=== PATIENT | female | born 1980 | race Caucasian/White ===

== ENCOUNTER 2016-03-24 05:37 | Day surgery (SDC) | payer OTHER ==
[2016-03-17 13:44] VITALS: BMI 24.0
[2016-03-24] MEDS ORDERED: LACTATED RINGERS SOLUTION 1,000 ML IV SCH (08:45)
[2016-03-24 08:46] VITALS: TEMP 98.8
[2016-03-24 09:23] VITALS: BP 122/72; PULSE 88
== END 2016-03-24 09:55 | disposition home or self-care (01) ==
LOC: FECT 05:37
PROVIDERS: ATTEND Psychiatry & Neurology Psychiatry
PROC: GZB4ZZZ Other Electroconvulsive Therapy (ICD-10-PCS; principal; 2016-03-24 07:45)
DX: F25.1 Schizoaffective disorder, depressive type (principal)
CPT/HCPCS: 84703; 90870; 94760

== ENCOUNTER 2016-03-26 05:43 | Day surgery (SDC) | payer OTHER ==
[2016-03-25 11:03] VITALS: BMI 24.0
[2016-03-26] MEDS ORDERED: ONDANSETRON 4 MG/2 ML VIAL IVPUSH PRN (08:40)
[2016-03-26 08:41] VITALS: TEMP 99.1
[2016-03-26 08:42] VITALS: BP 122/70; PULSE 88
== END 2016-03-26 08:45 | disposition home or self-care (01) ==
LOC: FECT 05:43
PROVIDERS: ATTEND Psychiatry & Neurology Psychiatry
PROC: GZB4ZZZ Other Electroconvulsive Therapy (ICD-10-PCS; principal; 2016-03-26 08:00)
DX: F25.1 Schizoaffective disorder, depressive type (principal)
CPT/HCPCS: 90870; 94760

== ENCOUNTER 2016-03-31 05:46 | Day surgery (SDC) | payer OTHER ==
[2016-03-26 15:59] VITALS: BMI 24.0
[2016-03-31 06:19] VITALS: TEMP 98.2
[2016-03-31] MEDS ORDERED: LACTATED RINGERS SOLUTION 1,000 ML IV SCH (07:30)
[2016-03-31 08:44] VITALS: BP 140/61; PULSE 66
== END 2016-03-31 08:30 | disposition home or self-care (01) ==
LOC: FECT 05:46
PROVIDERS: ATTEND Psychiatry & Neurology Psychiatry
PROC: GZB4ZZZ Other Electroconvulsive Therapy (ICD-10-PCS; principal; 2016-03-31 08:00)
DX: F25.1 Schizoaffective disorder, depressive type (principal)
CPT/HCPCS: 84703; 90870; 94760

== ENCOUNTER 2016-04-03 05:41 | Day surgery (SDC) | payer OTHER ==
[2016-04-01 12:19] VITALS: BMI 24.0
[2016-04-03 05:58] VITALS: TEMP 98.2
[2016-04-03 11:01] VITALS: BP 110/72; PULSE 82
== END 2016-04-03 08:15 | disposition home or self-care (01) ==
LOC: FECT 05:41
PROVIDERS: ATTEND Psychiatry & Neurology Psychiatry
PROC: GZB4ZZZ Other Electroconvulsive Therapy (ICD-10-PCS; principal; 2016-04-03 08:45)
DX: F25.1 Schizoaffective disorder, depressive type (principal)
CPT/HCPCS: 90870; 94760

== ENCOUNTER 2016-04-07 05:38 | Day surgery (SDC) | payer OTHER ==
[2016-04-03 15:32] VITALS: BMI 24.0
[2016-04-07 06:00] VITALS: TEMP 98.6
[2016-04-07] MEDS ORDERED: LACTATED RINGERS SOLUTION 1,000 ML IV SCH (08:15)
[2016-04-07 08:56] VITALS: BP 118/71; PULSE 88
== END 2016-04-07 08:55 | disposition home or self-care (01) ==
LOC: FECT 05:38
PROVIDERS: ATTEND Psychiatry & Neurology Psychiatry
PROC: GZB4ZZZ Other Electroconvulsive Therapy (ICD-10-PCS; principal; 2016-04-07 08:30)
DX: F25.1 Schizoaffective disorder, depressive type (principal)
CPT/HCPCS: 84703; 90870; 94760

== ENCOUNTER 2016-04-14 08:03 | Day surgery (SDC) | payer OTHER ==
[2016-04-07 11:40] VITALS: BMI 24.0
--- NOTE | 2016-04-14 07:29 | HP ---
Admitting History and Physical - Admission History of Present Illness: patient is a 35 y/o female with a past medical history of scizo-affective disorder that presents for ECT. patient's last ECT was 04/07/15. patient reports feeling well, she denies any recent medication changes or illness. However, the RN reports when patient was brought to the hospital this morning, she was informed by the patient's special education bus driver, the patient was ambulating into the bathroom and had a brief loss of consciousness. Upon questioning patient, she reports ambulating to the bathroom and is unsure if she loss any consciousness. She denies any headache, nausea, or blurred vision. History Source: Patient Limitations to Obtaining History: Poor Historian - Past Medical History ...LMP: 12/20/15 Psych: Yes: Bipolar, Other (schizoaffective disorder) - Past Surgical History Past Surgical History: Yes: None. No: AAA Repair, AICD, Amputation, Appendectomy, Arthrosocopy, AV Fistula/Graft, Bariatric Surgery, Breast Biopsy, Bypass, CABG, Carotid Endarterectomy, Cataract Removal, Cholecystectomy, Colectomy, Colonoscopy, Colostomy, Craniotomy, , Cystectomy, Hernia Repair, Hysterectomy, Ileal Conduit, Ileosotomy, Joint Replacement, Kidney Transplant, Laminectomy, Liver Transplant, Mastectomy, Nephrectomy, Oopherectomy , Orchiectomy, Permanent Pacemaker, Prostatectomy, Splenectomy, Stent, Thoracotomy, TURP, Tonsillectomy, Tubal Ligation, Upper Endoscopy, Valve Replacement, Vasectomy, Vein Stripping/Ligation - Smoking History Smoking history: Never smoked Have you smoked in the past 12 months: No - Alcohol/Substance Use Hx Alcohol Use: No History of Substance Use: reports: None - Social History Usual Living Arrangement: Yes: With Spouse ADL: Independent History of Recent Travel: No Home Medications - Allergies Allergies/Adverse Reactions: Allergies Allergy/AdvReac Type Severity Reaction Status Date / Time No Known Drug Allergies Allergy Verified 03/26/16 15:55 - Home Medications Home Medications: Ambulatory Orders Clonazepam [KlonoPIN] 0.5 mg PO BID 04/12/14 Asenapine [Saphris -] 5 mg SL HS 07/01/15 Perphenazine 8 mg PO BID 07/01/15 Norethindrone AC-Eth Estradiol [Loestrin 21 1.5-30 Tablet] 1 each PO DAILY 10/10 Benztropine Mesylate [Cogentin -] 1 mg PO BID 11/29/15 Docusate Sodium [Colace -] 100 mg PO DAILY 11/29/15 Lactobacillus Acidophilus [Acidophilus] 1 each PO DAILY 11/29/15 Multivitamin [Poly-Vitamin] 1 each PO DAILY 11/29/15 [place]-3 Fatty Acids [Fish Oil] 300 mg PO DAILY 11/29/15 Divalproex [Depakote -] 500 mg PO BID 02/07/16 Asenapine Maleate [Saphris] 10 mg SL DAILY 03/13/16 Family Disease History - Family Disease History Family History: Unremarkable Review of Systems - Review of Systems Constitutional: reports: No Symptoms Eyes: reports: No Symptoms HENT: reports: No Symptoms Neck: reports: No Symptoms Cardiovascular: reports: No Symptoms Respiratory: reports: No Symptoms Gastrointestinal: reports: No Symptoms Genitourinary: reports: No Symptoms Musculoskeletal: reports: No Symptoms Integumentary: reports: No Symptoms Neurological: reports: No Symptoms Endocrine: reports: No Symptoms Hematology/Lymphatic: reports: No Symptoms Psychiatric: reports: No Symptoms Physical Examination Constitutional: Yes: Well Nourished, No Distress, Calm Eyes: Yes: WNL, Conjunctiva Clear, EOM Intact HENT: Yes: WNL, Atraumatic, Normocephalic Neck: Yes: WNL, Supple, Trachea Midline Cardiovascular: Yes: WNL, Regular Rate and Rhythm, S1, S2 Respiratory: Yes: WNL, Regular, CTA Bilaterally Gastrointestinal: Yes: WNL, Normal Bowel Sounds, Soft ...Rectal Exam: Yes: Deferred Renal/: Yes: WNL Musculoskeletal: Yes: WNL Extremities: Yes: WNL Edema: No Peripheral Pulses WNL: Yes Peripheral Pulses: Left Radial: 4+, Right Radial: 4+, Left Doralis Pedis: 3+, Right Dorsalis Pedis: 3+, Left Femoral: 3+, Right Femoral: 3+ Integumentary: Yes: WNL Neurological: Yes: WNL, Alert, Oriented ...Motor Strength: WNL Psychiatric: Yes: WNL, Alert, Oriented Labs: reviewed 02/04 Imaging - Results EKG: Image Reviewed, Other (nsr) Assessment/Plan pt is a 35 y/o female with a past medical history of scizo-affective disorder that presents for ECT. Since, patient has a reported questionable syncopal episode this AM and does not have a history of a seizure disorder. Patient is at moderate risk for ECT.
[2016-04-14 09:16] VITALS: TEMP 97.8
[2016-04-14 09:21] VITALS: BP 114/62; PULSE 88
== END 2016-04-14 09:15 | disposition home or self-care (01) ==
LOC: FECT 08:03
PROVIDERS: ATTEND Psychiatry & Neurology Psychiatry
PROC: GZB4ZZZ Other Electroconvulsive Therapy (ICD-10-PCS; principal; 2016-04-14 07:15)
DX: F25.1 Schizoaffective disorder, depressive type (principal)
CPT/HCPCS: 84703; 90870; 94760

== ENCOUNTER 2016-04-21 05:40 | Day surgery (SDC) | payer OTHER ==
[2016-04-14 16:17] VITALS: BMI 24.0
[2016-04-21 08:47] VITALS: TEMP 98.1
[2016-04-21 08:49] VITALS: BP 120/77; PULSE 89
== END 2016-04-21 08:50 | disposition home or self-care (01) ==
LOC: FECT 05:40
PROVIDERS: ATTEND Psychiatry & Neurology Psychiatry
PROC: GZB4ZZZ Other Electroconvulsive Therapy (ICD-10-PCS; principal; 2016-04-21 07:30)
DX: F25.1 Schizoaffective disorder, depressive type (principal)
CPT/HCPCS: 84703; 90870; 94760

== ENCOUNTER 2016-04-28 05:37 | Day surgery (SDC) | payer OTHER ==
[2016-04-24 09:13] VITALS: BMI 24.0
[2016-04-28 06:51] VITALS: TEMP 98.1
[2016-04-28 08:41] VITALS: BP 111/71; PULSE 88
[2016-04-28] MEDS ORDERED: ACETAMINOPHEN 325 MG TABLET (FP) PO PRN (08:42)
[2016-04-28] MEDS ORDERED: ONDANSETRON 4 MG/2 ML VIAL IVPUSH PRN (08:42)
== END 2016-04-28 08:30 | disposition home or self-care (01) ==
LOC: FECT 05:37
PROVIDERS: ATTEND Psychiatry & Neurology Psychiatry
PROC: GZB4ZZZ Other Electroconvulsive Therapy (ICD-10-PCS; principal; 2016-04-28 07:30)
DX: F25.1 Schizoaffective disorder, depressive type (principal)
CPT/HCPCS: 84703; 90870; 94760

== ENCOUNTER 2016-05-04 05:49 | Day surgery (SDC) | payer OTHER ==
[2016-05-04 06:24] VITALS: BMI 24.0
[2016-05-04] MEDS ORDERED: ONDANSETRON 4 MG/2 ML VIAL IVPUSH PRN (06:28)
[2016-05-04 08:14] VITALS: TEMP 98.1
[2016-05-04 08:40] VITALS: BP 111/67; PULSE 69
== END 2016-05-04 09:00 | disposition home or self-care (01) ==
LOC: FECT 05:49
PROVIDERS: ATTEND Psychiatry & Neurology Psychiatry
PROC: GZB4ZZZ Other Electroconvulsive Therapy (ICD-10-PCS; principal; 2016-05-04 08:30)
DX: F25.1 Schizoaffective disorder, depressive type (principal)
CPT/HCPCS: 84703; 90870; 94760

== ENCOUNTER 2016-05-07 05:51 | Day surgery (SDC) | payer OTHER ==
[2016-05-04 16:52] VITALS: BMI 24.0
[2016-05-07 06:43] VITALS: TEMP 98.1
[2016-05-07 08:17] VITALS: BP 106/63; PULSE 81
[2016-05-07] MEDS ORDERED: ONDANSETRON 4 MG/2 ML VIAL IVPUSH PRN (08:48)
== END 2016-05-07 08:20 | disposition home or self-care (01) ==
LOC: FASU 05:51
PROVIDERS: ATTEND Psychiatry & Neurology Psychiatry
PROC: GZB4ZZZ Other Electroconvulsive Therapy (ICD-10-PCS; principal; 2016-05-07 08:15)
DX: F25.1 Schizoaffective disorder, depressive type (principal)
CPT/HCPCS: 84703; 90870; 94760

== ENCOUNTER 2016-05-12 05:42 | Day surgery (SDC) | payer OTHER ==
[2016-05-07 10:16] VITALS: BMI 24.0
[2016-05-12 06:26] VITALS: TEMP 98.2
[2016-05-12 08:52] VITALS: BP 118/66; PULSE 88
== END 2016-05-12 08:45 | disposition home or self-care (01) ==
LOC: FECT 05:42
PROVIDERS: ATTEND Psychiatry & Neurology Psychiatry
PROC: GZB4ZZZ Other Electroconvulsive Therapy (ICD-10-PCS; principal; 2016-05-12 08:15)
DX: F25.1 Schizoaffective disorder, depressive type (principal)
CPT/HCPCS: 84703; 90870; 94760

== ENCOUNTER 2016-05-19 05:43 | Day surgery (SDC) | payer OTHER ==
[2016-05-07 15:09] VITALS: BMI 24.7
--- NOTE | 2016-05-19 07:18 | HP ---
Admitting History and Physical - Admission History of Present Illness: patient is a 35 y/o female with a past medical history of schizo-affective disorder. patient presents for ECT, her last ECT was 05/12/16. patient reports a recent diagnosis of a viral URI. patient denies any chest pain or shortness of breath. she does report intermittent cough. she denies any recent medication changes and reports compliance with prescribed medications. History Source: Patient Limitations to Obtaining History: No Limitations - Past Medical History ...LMP: 12/20/15 Psych: Yes: Bipolar, Other (schizoaffective disorder) - Past Surgical History Past Surgical History: Yes: None. No: AAA Repair, AICD, Amputation, Appendectomy, Arthrosocopy, AV Fistula/Graft, Bariatric Surgery, Breast Biopsy, Bypass, CABG, Carotid Endarterectomy, Cataract Removal, Cholecystectomy, Colectomy, Colonoscopy, Colostomy, Craniotomy, , Cystectomy, Hernia Repair, Hysterectomy, Ileal Conduit, Ileosotomy, Joint Replacement, Kidney Transplant, Laminectomy, Liver Transplant, Mastectomy, Nephrectomy, Oopherectomy , Orchiectomy, Permanent Pacemaker, Prostatectomy, Splenectomy, Stent, Thoracotomy, TURP, Tonsillectomy, Tubal Ligation, Upper Endoscopy, Valve Replacement, Vasectomy, Vein Stripping/Ligation - Smoking History Smoking history: Never smoked Have you smoked in the past 12 months: No - Alcohol/Substance Use Hx Alcohol Use: No History of Substance Use: reports: None - Social History Usual Living Arrangement: Yes: With Spouse ADL: Independent History of Recent Travel: No Home Medications - Allergies Allergies/Adverse Reactions: Allergies Allergy/AdvReac Type Severity Reaction Status Date / Time No Known Drug Allergies Allergy Verified 05/07/16 15:05 - Home Medications Home Medications: Ambulatory Orders Clonazepam [KlonoPIN] 0.5 mg PO BID 04/12/14 Asenapine [Saphris -] 5 mg SL DAILY 07/01/15 Perphenazine 8 mg PO BID 07/01/15 Benztropine Mesylate [Cogentin -] 1 mg PO BID 11/29/15 Docusate Sodium [Colace -] 100 mg PO DAILY 11/29/15 Lactobacillus Acidophilus [Acidophilus] 1 each PO DAILY 11/29/15 Multivitamin [Poly-Vitamin] 1 each PO DAILY 11/29/15 [place]-3 Fatty Acids [Fish Oil] 300 mg PO DAILY 11/29/15 Divalproex [Depakote -] 500 mg PO BID 02/07/16 Asenapine Maleate [Saphris] 10 mg SL DAILY 03/13/16 Folic Acid 1 mg PO BID 04/16/16 Family Disease History - Family Disease History Family History: Unremarkable Review of Systems - Review of Systems Constitutional: reports: No Symptoms Eyes: reports: No Symptoms HENT: reports: No Symptoms Neck: reports: No Symptoms Cardiovascular: reports: No Symptoms Respiratory: reports: No Symptoms Gastrointestinal: reports: No Symptoms, Indigestion Genitourinary: reports: No Symptoms Breasts: reports: No Symptoms Reported Musculoskeletal: reports: No Symptoms Integumentary: reports: No Symptoms Neurological: reports: No Symptoms Endocrine: reports: No Symptoms Hematology/Lymphatic: reports: No Symptoms Psychiatric: reports: No Symptoms Physical Examination Vital Signs: Vital Signs Temperature 98.1 F 05/19/16 06:05 Pulse Rate 87 05/19/16 06:05 Respiratory Rate 18 05/19/16 06:05 Blood Pressure 142/83 05/19/16 06:05 O2 Sat by Pulse Oximetry (%) 100 05/19/16 06:05 Constitutional: Yes: Well Nourished, No Distress, Calm Eyes: Yes: WNL, Conjunctiva Clear, EOM Intact HENT: Yes: WNL, Atraumatic, Normocephalic Neck: Yes: WNL, Supple, Trachea Midline Cardiovascular: Yes: WNL, Regular Rate and Rhythm, S1, S2 Respiratory: Yes: WNL, Regular, CTA Bilaterally Gastrointestinal: Yes: WNL, Normal Bowel Sounds, Soft ...Rectal Exam: Yes: Deferred Renal/: Yes: WNL Breast(s): Yes: WNL Musculoskeletal: Yes: WNL Extremities: Yes: WNL Edema: No Peripheral Pulses WNL: Yes Peripheral Pulses: Left Radial: 4+, Right Radial: 4+, Left Doralis Pedis: 3+, Right Dorsalis Pedis: 3+, Left Femoral: 3+, Right Femoral: 3+ Integumentary: Yes: WNL Neurological: Yes: WNL, Alert, Oriented ...Motor Strength: WNL Psychiatric: Yes: WNL, Alert, Oriented Labs: reviewed 12/05 Imaging - Results EKG: Image Reviewed, Other (nsr no ishcemic change) Assessment/Plan patient is a 35 y/o female that presents for ECT, pt has received ect in denies any adverse reaction to anesthesia labs and ekg reviewed pt is low risk for ect informed consent, risks/benefits to be obtained by Dr Roth
[2016-05-19] MEDS ORDERED: LACTATED RINGERS SOLUTION 1,000 ML IV SCH (08:30)
[2016-05-19] MEDS ORDERED: ONDANSETRON 4 MG/2 ML VIAL IVPUSH PRN (08:43)
[2016-05-19 09:15] VITALS: TEMP 98.6
[2016-05-19 09:17] VITALS: BP 110/77; PULSE 84
== END 2016-05-19 09:00 | disposition home or self-care (01) ==
LOC: FECT 05:43
PROVIDERS: ATTEND Psychiatry & Neurology Psychiatry
PROC: GZB4ZZZ Other Electroconvulsive Therapy (ICD-10-PCS; principal; 2016-05-19 07:45)
DX: F25.1 Schizoaffective disorder, depressive type (principal)
CPT/HCPCS: 84703; 90870; 94760

== ENCOUNTER 2016-05-26 05:35 | Day surgery (SDC) | payer OTHER ==
[2016-05-19 11:03] VITALS: BMI 24.7
[2016-05-26 06:29] VITALS: TEMP 98
[2016-05-26] MEDS ORDERED: ONDANSETRON 4 MG/2 ML VIAL IVPUSH PRN (08:38)
[2016-05-26 08:41] VITALS: BP 117/66; PULSE 84
[2016-05-26] MEDS ORDERED: LACTATED RINGERS SOLUTION 1,000 ML IV SCH (08:45)
== END 2016-05-26 08:40 | disposition home or self-care (01) ==
LOC: FECT 05:35
PROVIDERS: ATTEND Psychiatry & Neurology Psychiatry
PROC: GZB4ZZZ Other Electroconvulsive Therapy (ICD-10-PCS; principal; 2016-05-26 07:15)
DX: F25.1 Schizoaffective disorder, depressive type (principal)
CPT/HCPCS: 84703; 90870; 94760

== ENCOUNTER 2016-09-07 05:53 | Day surgery (SDC) | payer OTHER ==
--- NOTE | 2016-09-07 07:01 | HP ---
Admitting History and Physical - Admission History of Present Illness: pt is a 36 y/o female with a past medical history of schizo-affective disorder that presents for ECT, her last ECT was in May 2016. Patient is a poor historian as per her sister in law, patients ECT sessions were held as per her psychiatrist in [facility] for 2 months. Patient reports feeling well, she denies any recent illnesses or hospitalizations. History Source: Patient Limitations to Obtaining History: No Limitations - Past Medical History ...LMP: 12/20/15 Psych: Yes: Bipolar, Other (schizoaffective disorder) - Past Surgical History Past Surgical History: Yes: None. No: AAA Repair, AICD, Amputation, Appendectomy, Arthrosocopy, AV Fistula/Graft, Bariatric Surgery, Breast Biopsy, Bypass, CABG, Carotid Endarterectomy, Cataract Removal, Cholecystectomy, Colectomy, Colonoscopy, Colostomy, Craniotomy, , Cystectomy, Hernia Repair, Hysterectomy, Ileal Conduit, Ileosotomy, Joint Replacement, Kidney Transplant, Laminectomy, Liver Transplant, Mastectomy, Nephrectomy, Oopherectomy , Orchiectomy, Permanent Pacemaker, Prostatectomy, Splenectomy, Stent, Thoracotomy, TURP, Tonsillectomy, Tubal Ligation, Upper Endoscopy, Valve Replacement, Vasectomy, Vein Stripping/Ligation - Smoking History Smoking history: Never smoked Have you smoked in the past 12 months: No - Alcohol/Substance Use Hx Alcohol Use: No History of Substance Use: reports: None - Social History ADL: Independent History of Recent Travel: No Home Medications - Allergies Allergies/Adverse Reactions: Allergies Allergy/AdvReac Type Severity Reaction Status Date / Time No Known Drug Allergies Allergy Verified 05/07/16 15:05 - Home Medications Home Medications: Ambulatory Orders Docusate Sodium [Colace -] 100 mg PO DAILY 11/29/15 Lactobacillus Acidophilus [Acidophilus] 1 each PO DAILY 11/29/15 Multivitamin [Poly-Vitamin] 1 each PO DAILY 11/29/15 [place]-3 Fatty Acids [Fish Oil] 300 mg PO DAILY 11/29/15 Divalproex [Depakote -] 500 mg PO BID 02/07/16 Folic Acid 1 mg PO BID 04/16/16 Lorazepam [Ativan] 1 mg PO TID 09/04/16 Quetiapine Fumarate [Seroquel -] 400 mg PO BID 09/04/16 Family Disease History - Family Disease History Family History: Unremarkable Review of Systems - Review of Systems Constitutional: reports: No Symptoms Eyes: reports: No Symptoms HENT: reports: No Symptoms Neck: reports: No Symptoms Cardiovascular: reports: No Symptoms Respiratory: reports: No Symptoms Gastrointestinal: reports: No Symptoms Genitourinary: reports: No Symptoms Musculoskeletal: reports: No Symptoms Integumentary: reports: No Symptoms Neurological: reports: No Symptoms Endocrine: reports: No Symptoms Hematology/Lymphatic: reports: No Symptoms Psychiatric: reports: No Symptoms Physical Examination Constitutional: Yes: Well Nourished, No Distress, Calm Eyes: Yes: WNL, Conjunctiva Clear, EOM Intact HENT: Yes: WNL, Atraumatic, Normocephalic Neck: Yes: WNL, Supple, Trachea Midline, Other Cardiovascular: Yes: WNL, Regular Rate and Rhythm, S1, S2 Respiratory: Yes: WNL, Regular, CTA Bilaterally Gastrointestinal: Yes: WNL, Normal Bowel Sounds, Soft ...Rectal Exam: Yes: Deferred Renal/: Yes: WNL Breast(s): Yes: WNL Musculoskeletal: Yes: WNL Extremities: Yes: WNL Edema: No Peripheral Pulses WNL: Yes Integumentary: Yes: WNL Neurological: Yes: WNL, Alert, Oriented ...Motor Strength: WNL Psychiatric: Yes: WNL, Alert, Oriented, Other (flat affect) Labs: CBC WBC 5.5 K/mm3 (4.0-10.0) D 09/07/16 06:50 RBC 4.48 M/mm3 (3.60-5.2) 09/07/16 06:50 Hgb 13.6 GM/dL (10.7-15.3) D 09/07/16 06:50 Hct 40.1 % (32.4-45.2) 09/07/16 06:50 MCV 89.5 fl (80-96) 09/07/16 06:50 MCHC 34.0 g/dl (32.0-36.0) 09/07/16 06:50 RDW 13.3 % (11.6-15.6) 09/07/16 06:50 Plt Count 169 K/MM3 (134-434) D 09/07/16 06:50 MPV 8.2 fl (7.5-11.1) 09/07/16 06:50 Neutrophils % 41.0 % (42.8-82.8) L 09/07/16 06:50 Lymphocytes % 47.7 % (8-40) H 09/07/16 06:50 Monocytes % 10.0 % (3.8-10.2) 09/07/16 06:50 Eosinophils % 1.0 % (0-4.5) 09/07/16 06:50 Basophils % 0.3 % (0-2.0) 09/07/16 06:50 CMP Sodium 138 mmol/L (136-145) 09/07/16 06:50 Potassium 3.7 mmol/L (3.5-5.1) 09/07/16 06:50 Chloride 104 mmol/L (98-107) 09/07/16 06:50 Carbon Dioxide 27 mmol/L (22-28) 09/07/16 06:50 Anion Gap 7 (8-16) L 09/07/16 06:50 BUN 17 mg/dl (7-18) D 09/07/16 06:50 Creatinine 0.7 mg/dl (0.6-1.3) 09/07/16 06:50 Creat Clearance w eGFR > 60 (>60) 09/07/16 06:50 Random Glucose 90 mg/dl (74-106) D 09/07/16 06:50 Calcium 8.9 mg/dl (8.4-10.2) 09/07/16 06:50 Total Bilirubin 0.6 mg/dl (0.2-1.0) D 09/07/16 06:50 AST 15 U/L (10-42) D 09/07/16 06:50 ALT 12 U/L (10-40) 09/07/16 06:50 Alkaline Phosphatase 39 U/L (32-92) D 09/07/16 06:50 Total Protein 6.0 g/dl (6.4-8.3) L 09/07/16 06:50 Albumin 3.7 g/dl (3.5-5.0) 09/07/16 06:50 Imaging - Results EKG: Image Reviewed, Other (nsr no ischemic changes) Assessment/Plan patient is a 36 y/o female with a past medical history of schizo-affective disorder that presents for ect. pt has received ect in the past and denies any adverse reaction to anesthesia. labs and ekg reviewed pt is low risk for procedure informed consent, risk/benefits to be obtained by Dr Roth
[2016-09-07 07:35] LABS: ALBUMIN 3.7 g/dl (3.5-5.0); ALK PHOS 39 U/L (32-92); ANION GAP 7 (8-16); BILIRUBIN,TOTAL 0.6 mg/dl (0.2-1.0); CALCIUM 8.9 mg/dl (8.4-10.2); CO2 27 mmol/L (22-28); CREATININE 0.7 mg/dl (0.6-1.3); GLUCOSE,RANDOM 90 mg/dl (74-106); SGOT/AST 15 U/L (10-42); SGPT/ALT 12 U/L (10-40)
[2016-09-07 07:44] VITALS: TEMP 98.2; BMI 23.8
[2016-09-07] MEDS ORDERED: LACTATED RINGERS SOLUTION 1,000 ML IV SCH (08:15)
[2016-09-07 08:30] LABS: BASOPHIL 0.3 % (0-2.0)
[2016-09-07 08:32] LABS: MCH 30.4 pg (25.7-33.7); MEAN CELL VOLUME 89.5 fl (80-96); MEAN PLT VOLUME 8.2 fl (7.5-11.1); PLATELET COUNT 169 K/MM3 (134-434); RDW 13.3 % (11.6-15.6); WHITE BLOOD COUNT 5.5 K/mm3 (4.0-10.0)
[2016-09-07] MEDS ORDERED: ACETAMINOPHEN 325 MG TABLET (FP) PO PRN (09:53)
[2016-09-07] MEDS ORDERED: ONDANSETRON 4 MG/2 ML VIAL IVPUSH PRN (09:53)
[2016-09-07 09:58] VITALS: BP 122/76; PULSE 84
--- NOTE | 2016-09-07 11:26 | EKG ---
Test Reason : Blood Pressure : / mmHG Vent. Rate : 092 BPM Atrial Rate : 092 BPM P-R Int : 130 ms QRS Dur : 090 ms QT Int : 360 ms P-R-T Axes : 087 090 081 degrees QTc Int : 445 ms NORMAL SINUS RHYTHM NO PREVIOUS ECGS AVAILABLE Confirmed by TAI LEGGETT MD ([id number]) on 09/07/2016 11:26:04 AM Referred By: Joseph Roth Confirmed By:TAI LEGGETT MD
== END 2016-09-07 10:02 | disposition home or self-care (01) ==
LOC: FECT 05:53
PROVIDERS: ATTEND Psychiatry & Neurology Psychiatry
PROC: GZB4ZZZ Other Electroconvulsive Therapy (ICD-10-PCS; principal; 2016-09-07 07:00)
DX: F25.1 Schizoaffective disorder, depressive type (principal)
CPT/HCPCS: 36415; 80053; 84703; 85025; 90870; 93005; 94760

== ENCOUNTER 2017-02-25 05:46 | Day surgery (SDC) | payer OTHER ==
--- NOTE | 2017-02-25 07:13 | HP ---
Admitting History and Physical - Admission History of Present Illness: patient is a 36 y/o female with a past medical history of scizo-affective disorder that presents for ect. Her last ect was 08/28/16. Patient is a poor historian. Her mother is at the bedside and reports patient was hosptialized in September 2016 at [place] for worsening hallucinations. Mother reports patient was well at home, however, within the past month she has been experiencing worsening of hallcuinations. Patient does report auditory hallucination but denies any visual hallucinations. Patient denies any suicidal or homicidal ideation. History Source: Patient - Past Medical History ...LMP: 12/20/15 Psych: Yes: Bipolar, Other (schizoaffective disorder) - Past Surgical History Past Surgical History: Yes: None. No: AAA Repair, AICD, Amputation, Appendectomy, Arthrosocopy, AV Fistula/Graft, Bariatric Surgery, Breast Biopsy, Bypass, CABG, Carotid Endarterectomy, Cataract Removal, Cholecystectomy, Colectomy, Colonoscopy, Colostomy, Craniotomy, , Cystectomy, Hernia Repair, Hysterectomy, Ileal Conduit, Ileosotomy, Joint Replacement, Kidney Transplant, Laminectomy, Liver Transplant, Mastectomy, Nephrectomy, Oopherectomy , Orchiectomy, Permanent Pacemaker, Prostatectomy, Splenectomy, Stent, Thoracotomy, TURP, Tonsillectomy, Tubal Ligation, Upper Endoscopy, Valve Replacement, Vasectomy, Vein Stripping/Ligation - Smoking History Smoking history: Never smoked Have you smoked in the past 12 months: No - Alcohol/Substance Use Hx Alcohol Use: No History of Substance Use: reports: None - Social History Usual Living Arrangement: Yes: With Parent ADL: Independent History of Recent Travel: No Home Medications - Allergies Allergies/Adverse Reactions: Allergies Allergy/AdvReac Type Severity Reaction Status Date / Time No Known Drug Allergies Allergy Verified 05/07/16 15:05 - Home Medications Home Medications: Ambulatory Orders Multivitamin [Poly-Vitamin] 1 each PO DAILY 11/29/15 Aripiprazole 10 mg PO HS 02/25/17 Cariprazine HCl [Vraylar] 6 mg PO DAILY 02/25/17 Diazepam [Valium] 5 mg PO BID 02/25/17 Divalproex [Depakote -] 250 mg PO DAILY 02/25/17 Divalproex [Depakote -] 750 mg PO HS 02/25/17 Levomefolate/Algal Oil [[place]-Algal Oil 15 mg Capsule] 1 each PO DAILY Olanzapine 5 mg PO DAILY 02/25/17 Family Disease History - Family Disease History Family Disease History: Other: Father (deceaseed "long illnesses") Review of Systems - Review of Systems Constitutional: reports: No Symptoms Eyes: reports: No Symptoms HENT: reports: No Symptoms Neck: reports: No Symptoms Cardiovascular: reports: No Symptoms Respiratory: reports: No Symptoms Gastrointestinal: reports: No Symptoms Genitourinary: reports: No Symptoms Musculoskeletal: reports: No Symptoms Integumentary: reports: No Symptoms Neurological: reports: No Symptoms Endocrine: reports: No Symptoms Hematology/Lymphatic: reports: No Symptoms Psychiatric: reports: Hallucinations Physical Examination Vital Signs: Vital Signs Temperature 98.1 F 02/25/17 06:06 Pulse Rate 66 02/25/17 06:06 Respiratory Rate 18 02/25/17 06:06 Blood Pressure 112/72 02/25/17 06:06 O2 Sat by Pulse Oximetry (%) 100 02/25/17 06:06 Constitutional: Yes: Well Nourished, No Distress, Calm Eyes: Yes: WNL, Conjunctiva Clear, EOM Intact HENT: Yes: WNL, Atraumatic, Normocephalic Neck: Yes: WNL, Supple, Trachea Midline Cardiovascular: Yes: WNL, Regular Rate and Rhythm, S1, S2 Respiratory: Yes: WNL, Regular, CTA Bilaterally Gastrointestinal: Yes: WNL, Normal Bowel Sounds, Soft ...Rectal Exam: Yes: Deferred Renal/: Yes: WNL Breast(s): Yes: WNL Musculoskeletal: Yes: WNL Extremities: Yes: WNL Edema: No Peripheral Pulses WNL: No Peripheral Pulses: Left Radial: 4+, Right Radial: 4+, Left Doralis Pedis: 3+, Right Dorsalis Pedis: 3+, Left Femoral: 3+, Right Femoral: 3+ Integumentary: Yes: WNL Neurological: Yes: WNL, Alert, Oriented ...Motor Strength: WNL Psychiatric: Yes: WNL, Alert, Oriented Labs: CBC WBC 7.4 K/mm3 (4.0-10.8) 02/25/17 06:25 RBC 4.37 M/mm3 (3.60-5.2) 02/25/17 06:25 Hgb 13.3 GM/dl (10.7-15.3) 02/25/17 06:25 Hct 38.5 % (32.4-45.2) 02/25/17 06:25 MCV 88.3 fl (80-96) 02/25/17 06:25 MCH 30.5 pg (25.7-33.7) 02/25/17 06:25 MCHC 34.6 g/dl (32.0-36.0) 02/25/17 06:25 RDW 12.5 % (11.6-15.6) 02/25/17 06:25 Plt Count 258 K/MM3 (134-434) 02/25/17 06:25 MPV 8.6 fl (7.5-11.1) 02/25/17 06:25 Neutrophils % 57.4 % (42.8-82.8) 02/25/17 06:25 Lymphocytes % 35.9 % (8-40) 02/25/17 06:25 Monocytes % 5.2 % (3.8-10.2) 02/25/17 06:25 Eosinophils % 1.3 % (0-4.5) D 02/25/17 06:25 Basophils % 0.2 % (0-2.0) 02/25/17 06:25 CMP Sodium 140 mmol/L (136-145) 02/25/17 06:25 Potassium 4.4 mmol/L (3.5-5.1) 02/25/17 06:25 Chloride 106 mmol/L (98-107) 02/25/17 06:25 Carbon Dioxide 28 mmol/L (22-28) 02/25/17 06:25 Anion Gap 6 (8-16) L 02/25/17 06:25 BUN 22 mg/dl (7-18) H D 02/25/17 06:25 Creatinine 0.7 mg/dl (0.6-1.3) 02/25/17 06:25 Creat Clearance w eGFR > 60 (>60) 02/25/17 06:25 Random Glucose 76 mg/dl (74-106) 02/25/17 06:25 Calcium 9.1 mg/dl (8.4-10.2) 02/25/17 06:25 Total Bilirubin 0.6 mg/dl (0.2-1.0) 02/25/17 06:25 AST 18 U/L (10-42) 02/25/17 06:25 ALT 13 U/L (10-40) 02/25/17 06:25 Alkaline Phosphatase 44 U/L (32-92) 02/25/17 06:25 Total Protein 6.2 g/dl (6.4-8.3) L 02/25/17 06:25 Albumin 3.8 g/dl (3.5-5.0) 02/25/17 06:25 Assessment/Plan patient is a 36 y/o female that presents for ect, labs and ekg reviewed patient is medically optimized for procedure informed consent, risks/benefits to be obtained by Dr Roth.
[2017-02-25 07:46] VITALS: BMI 24.6
[2017-02-25 07:54] LABS: ALBUMIN 3.8 g/dl (3.5-5.0); ALK PHOS 44 U/L (32-92); ANION GAP 6 (8-16); BASOPHIL 0.2 % (0-2.0); BILIRUBIN,TOTAL 0.6 mg/dl (0.2-1.0); CALCIUM 9.1 mg/dl (8.4-10.2); CO2 28 mmol/L (22-28); CREATININE 0.7 mg/dl (0.6-1.3); EOSINOPHIL 1.3 % (0-4.5); GLUCOSE,RANDOM 76 mg/dl (74-106); MCH 30.5 pg (25.7-33.7); MCHC 34.6 g/dl (32.0-36.0); MEAN CELL VOLUME 88.3 fl (80-96); MEAN PLT VOLUME 8.6 fl (7.5-11.1); NEUTROPHILS 57.4 % (42.8-82.8); PLATELET COUNT 258 K/MM3 (134-434); RDW 12.5 % (11.6-15.6); SGOT/AST 18 U/L (10-42); SGPT/ALT 13 U/L (10-40); TOT PROT 6.2 g/dl (6.4-8.3); WHITE BLOOD COUNT 7.4 K/mm3 (4.0-10.8)
[2017-02-25] MEDS ORDERED: KETAMINE HCL 500 MG/10 ML VIAL ONE (09:19)
[2017-02-25] MEDS ORDERED: ONDANSETRON 4 MG/2 ML VIAL IVPUSH PRN (09:40)
[2017-02-25] MEDS ORDERED: LACTATED RINGERS SOLUTION 1,000 ML IV SCH (09:45)
[2017-02-25 10:56] VITALS: TEMP 98
[2017-02-25 10:58] VITALS: BP 101/60; PULSE 84
--- NOTE | 2017-03-01 17:13 | EKG ---
Test Reason : Blood Pressure : / mmHG Vent. Rate : 064 BPM Atrial Rate : 064 BPM P-R Int : 140 ms QRS Dur : 084 ms QT Int : 410 ms P-R-T Axes : 067 074 050 degrees QTc Int : 422 ms NORMAL SINUS RHYTHM WHEN COMPARED WITH ECG OF 07-SEP-2016 07:18, T WAVE AMPLITUDE HAS INCREASED IN LATERAL LEADS Confirmed by MD BALDWIN MARJORY ([id number] on 03/01/2017 5:13:03 PM Referred By: Joseph Roth Confirmed By:SKINNY BALDWIN MD
== END 2017-02-25 10:50 | disposition home or self-care (01) ==
LOC: FECT 05:46
PROVIDERS: ATTEND Psychiatry & Neurology Psychiatry
PROC: GZB4ZZZ Other Electroconvulsive Therapy (ICD-10-PCS; principal; 2017-02-25 07:15)
DX: F25.1 Schizoaffective disorder, depressive type (principal)
CPT/HCPCS: 36415; 80053; 84703; 85025; 90870; 93005; 93010; 94760

== ENCOUNTER 2017-03-01 05:46 | Day surgery (SDC) | payer OTHER ==
[2017-02-26 10:56] VITALS: BMI 24.6
[2017-03-01 07:45] VITALS: TEMP 98
[2017-03-01] MEDS ORDERED: KETAMINE HCL 500 MG/10 ML VIAL ONE (08:39)
[2017-03-01] MEDS ORDERED: ONDANSETRON 4 MG/2 ML VIAL IVPUSH PRN (09:49)
[2017-03-01 10:56] VITALS: BP 100/62; PULSE 63
== END 2017-03-01 10:30 | disposition home or self-care (01) ==
LOC: FECT 05:46
PROVIDERS: ATTEND Psychiatry & Neurology Psychiatry
PROC: GZB4ZZZ Other Electroconvulsive Therapy (ICD-10-PCS; principal; 2017-03-01 08:00)
DX: F25.1 Schizoaffective disorder, depressive type (principal)
CPT/HCPCS: 36415; 84703; 90870; 94760

== ENCOUNTER 2017-03-03 05:48 | Day surgery (SDC) | payer OTHER ==
[2017-02-26 12:16] VITALS: BMI 24.6
[2017-03-03 07:23] VITALS: TEMP 98
[2017-03-03] MEDS ORDERED: KETAMINE HCL 500 MG/10 ML VIAL ONE (08:49)
[2017-03-03 10:34] VITALS: BP 118/66; PULSE 64
== END 2017-03-03 10:30 | disposition home or self-care (01) ==
LOC: FECT 05:48
PROVIDERS: ATTEND Psychiatry & Neurology Psychiatry
PROC: GZB4ZZZ Other Electroconvulsive Therapy (ICD-10-PCS; principal; 2017-03-03 08:00)
DX: F25.1 Schizoaffective disorder, depressive type (principal)
CPT/HCPCS: 36415; 84703; 90870; 94760

== ENCOUNTER → 2017-03-05 | Day surgery (SDC) | payer OTHER ==
[2017-03-03 07:48] VITALS: BMI 24.6
[~2017-03-05] MED LIST: KETAMINE HCL 500 MG/10 ML VIAL ONE
[2017-03-05 06:43] VITALS: BP 82/60; PULSE 61; TEMP 98
== END | disposition home or self-care (01) ==
LOC: FECT 05:42
PROVIDERS: ATTEND Psychiatry & Neurology Psychiatry
PROC: GZB4ZZZ Other Electroconvulsive Therapy (ICD-10-PCS; principal; 2017-03-05)
DX: F25.1 Schizoaffective disorder, depressive type (principal); Z53.8 Procedure and treatment not carried out for other reasons
CPT/HCPCS: 36415; 84703

== ENCOUNTER 2017-03-08 05:29 | Day surgery (SDC) | payer OTHER ==
[2017-03-03 12:59] VITALS: BMI 24.6
[2017-03-08] MEDS ORDERED: ONDANSETRON 4 MG/2 ML VIAL IVPUSH PRN (07:20)
[2017-03-08] MEDS ORDERED: PROMETHAZINE HCL 25 MG/1 ML VIAL IVPUSH PRN (07:20)
[2017-03-08] MEDS ORDERED: LACTATED RINGERS SOLUTION 1,000 ML IV SCH (07:30)
[2017-03-08 08:17] VITALS: TEMP 98.6
[2017-03-08 09:12] VITALS: BP 103/63; PULSE 61
== END 2017-03-08 09:14 | disposition home or self-care (01) ==
LOC: FECT 05:29
PROVIDERS: ATTEND Psychiatry & Neurology Psychiatry
PROC: GZB4ZZZ Other Electroconvulsive Therapy (ICD-10-PCS; principal; 2017-03-08 07:15)
DX: F25.1 Schizoaffective disorder, depressive type (principal)
CPT/HCPCS: 36415; 84703; 90870; 94760

== ENCOUNTER 2017-03-10 05:38 | Day surgery (SDC) | payer OTHER ==
[2017-03-04 08:44] VITALS: BMI 24.6
[2017-03-10 08:54] VITALS: TEMP 98.1
[2017-03-10 09:46] VITALS: BP 103/62; PULSE 66
== END 2017-03-10 09:47 | disposition home or self-care (01) ==
LOC: FECT 05:38
PROVIDERS: ATTEND Psychiatry & Neurology Psychiatry
PROC: GZB4ZZZ Other Electroconvulsive Therapy (ICD-10-PCS; principal; 2017-03-10 07:30)
DX: F25.1 Schizoaffective disorder, depressive type (principal)
CPT/HCPCS: 84703; 90870; 94760

== ENCOUNTER 2017-03-12 06:11 | Day surgery (SDC) | payer OTHER ==
[2017-03-04 09:07] VITALS: BMI 24.6
[2017-03-12] MEDS ORDERED: LACTATED RINGERS SOLUTION 1,000 ML IV SCH (08:15)
[2017-03-12] MEDS ORDERED: KETAMINE HCL 500 MG/10 ML VIAL ONE (08:29)
[2017-03-12 09:55] VITALS: TEMP 98
[2017-03-12 09:58] VITALS: BP 106/62; PULSE 72
== END 2017-03-12 09:50 | disposition home or self-care (01) ==
LOC: FECT 06:11
PROVIDERS: ATTEND Psychiatry & Neurology Psychiatry
PROC: GZB4ZZZ Other Electroconvulsive Therapy (ICD-10-PCS; principal; 2017-03-12 07:15)
DX: F25.1 Schizoaffective disorder, depressive type (principal)
CPT/HCPCS: 90870; 94760

== ENCOUNTER 2017-03-17 05:40 | Day surgery (SDC) | payer OTHER ==
[2017-03-17 06:15] VITALS: TEMP 98; BMI 24.6
[2017-03-17] MEDS ORDERED: KETAMINE HCL 500 MG/10 ML VIAL ONE (06:56)
[2017-03-17 08:48] VITALS: BP 115/68; PULSE 78
== END 2017-03-17 08:40 | disposition home or self-care (01) ==
LOC: FECT 05:40
PROVIDERS: ATTEND Psychiatry & Neurology Psychiatry
PROC: GZB4ZZZ Other Electroconvulsive Therapy (ICD-10-PCS; principal; 2017-03-17 07:00)
DX: F25.1 Schizoaffective disorder, depressive type (principal)
CPT/HCPCS: 84703; 90870; 94760

== ENCOUNTER 2017-03-19 05:39 | Day surgery (SDC) | payer OTHER ==
[2017-03-19 07:04] VITALS: TEMP 98.8; BMI 24.6
[2017-03-19] MEDS ORDERED: KETAMINE HCL 500 MG/10 ML VIAL ONE (08:02)
[2017-03-19 09:24] VITALS: BP 102/63; PULSE 64
== END 2017-03-19 09:25 | disposition home or self-care (01) ==
LOC: FECT 05:39
PROVIDERS: ATTEND Psychiatry & Neurology Psychiatry
PROC: GZB4ZZZ Other Electroconvulsive Therapy (ICD-10-PCS; principal; 2017-03-19 07:00)
DX: F25.1 Schizoaffective disorder, depressive type (principal)
CPT/HCPCS: 90870; 94760

== ENCOUNTER 2017-03-24 05:40 | Day surgery (SDC) | payer OTHER ==
[2017-03-17 11:32] VITALS: BMI 24.6
[2017-03-24] MEDS ORDERED: LACTATED RINGERS SOLUTION 1,000 ML IV SCH (07:45)
[2017-03-24 08:30] VITALS: TEMP 98.8
[2017-03-24 09:12] VITALS: BP 110/62; PULSE 74
== END 2017-03-24 09:00 | disposition home or self-care (01) ==
LOC: FECT 05:40
PROVIDERS: ATTEND Psychiatry & Neurology Psychiatry
PROC: GZB4ZZZ Other Electroconvulsive Therapy (ICD-10-PCS; principal; 2017-03-24 07:00)
DX: F25.1 Schizoaffective disorder, depressive type (principal)
CPT/HCPCS: 36415; 84703; 90870; 94760

== ENCOUNTER 2017-03-26 05:41 | Day surgery (SDC) | payer OTHER ==
[2017-03-17 12:38] VITALS: BMI 24.6
[2017-03-26] MEDS ORDERED: KETAMINE HCL 500 MG/10 ML VIAL ONE (07:00)
[2017-03-26 07:57] VITALS: TEMP 98.3
[2017-03-26] MEDS ORDERED: ONDANSETRON 4 MG/2 ML VIAL IVPUSH PRN (08:23)
[2017-03-26] MEDS ORDERED: oxyCODONE HCL 5 MG TABLET PO PRN (08:23)
[2017-03-26] MEDS ORDERED: LACTATED RINGERS SOLUTION 1,000 ML IV SCH (08:30)
[2017-03-26 08:54] VITALS: BP 106/58; PULSE 76
== END 2017-03-26 08:40 | disposition home or self-care (01) ==
LOC: FECT 05:41
PROVIDERS: ATTEND Psychiatry & Neurology Psychiatry
PROC: GZB4ZZZ Other Electroconvulsive Therapy (ICD-10-PCS; principal; 2017-03-26 07:00)
DX: F25.1 Schizoaffective disorder, depressive type (principal)
CPT/HCPCS: 90870; 94760

== ENCOUNTER 2017-03-30 05:49 | Day surgery (SDC) | payer OTHER ==
[2017-03-17 12:43] VITALS: BMI 24.6
--- NOTE | 2017-03-30 08:10 | HP ---
Admitting History and Physical - Admission History of Present Illness: Patient is a 36 y/o female with a past medical history of of scizo-affective disorder that presents for ect. patient's last ect was 03/26/17. Patient voices no complaints. She denies any recent illnesses or hospitalizations. Patient denies any recent medication changes. History Source: Patient Limitations to Obtaining History: No Limitations - Past Medical History ...LMP: 03/22/17 Psych: Yes: Bipolar, Other (schizoaffective disorder) - Past Surgical History Past Surgical History: Yes: None. No: AAA Repair, AICD, Amputation, Appendectomy, Arthrosocopy, AV Fistula/Graft, Bariatric Surgery, Breast Biopsy, Bypass, CABG, Carotid Endarterectomy, Cataract Removal, Cholecystectomy, Colectomy, Colonoscopy, Colostomy, Craniotomy, , Cystectomy, Hernia Repair, Hysterectomy, Ileal Conduit, Ileosotomy, Joint Replacement, Kidney Transplant, Laminectomy, Liver Transplant, Mastectomy, Nephrectomy, Oopherectomy , Orchiectomy, Permanent Pacemaker, Prostatectomy, Splenectomy, Stent, Thoracotomy, TURP, Tonsillectomy, Tubal Ligation, Upper Endoscopy, Valve Replacement, Vasectomy, Vein Stripping/Ligation - Smoking History Smoking history: Never smoked Have you smoked in the past 12 months: No - Alcohol/Substance Use Hx Alcohol Use: No History of Substance Use: reports: None - Social History Usual Living Arrangement: Yes: With Parent ADL: Independent History of Recent Travel: No Home Medications - Allergies Allergies/Adverse Reactions: Allergies Allergy/AdvReac Type Severity Reaction Status Date / Time No Known Drug Allergies Allergy Verified 03/19/17 07:08 - Home Medications Home Medications: Ambulatory Orders Aripiprazole 5 mg PO DAILY 02/25/17 Cariprazine HCl [Vraylar] 3 mg PO DAILY 02/25/17 Diazepam [Valium] 5 mg PO BID 02/25/17 Divalproex [Depakote -] 250 mg PO DAILY 02/25/17 Divalproex [Depakote -] 250 mg PO HS 02/25/17 Levomefolate/Algal Oil [Deplin-Algal Oil 15 mg Capsule] 1 each PO DAILY Clonazepam 2 mg PO DAILY PRN 03/08/17 Family Disease History - Family Disease History Family Disease History: Other: Father (deceaseed "long illnesses") Review of Systems - Review of Systems Constitutional: reports: No Symptoms Eyes: reports: No Symptoms HENT: reports: No Symptoms Neck: reports: No Symptoms Cardiovascular: reports: No Symptoms Respiratory: reports: No Symptoms Gastrointestinal: reports: No Symptoms Genitourinary: reports: No Symptoms Musculoskeletal: reports: No Symptoms Integumentary: reports: No Symptoms Neurological: reports: No Symptoms Endocrine: reports: No Symptoms Hematology/Lymphatic: reports: No Symptoms Psychiatric: reports: No Symptoms Physical Examination Vital Signs: Vital Signs Temperature 98.3 F 03/30/17 07:49 Pulse Rate 92 H 03/30/17 07:49 Respiratory Rate 18 03/30/17 07:49 Blood Pressure 113/72 03/30/17 07:49 O2 Sat by Pulse Oximetry (%) 98 03/30/17 07:49 Constitutional: Yes: Well Nourished, No Distress, Calm Eyes: Yes: WNL, Conjunctiva Clear, EOM Intact HENT: Yes: WNL, Atraumatic, Normocephalic Neck: Yes: WNL, Supple, Trachea Midline Cardiovascular: Yes: WNL, Regular Rate and Rhythm, S1, S2 Respiratory: Yes: WNL, Regular, CTA Bilaterally Gastrointestinal: Yes: WNL, Normal Bowel Sounds, Soft ...Rectal Exam: Yes: Deferred Renal/: Yes: WNL Breast(s): Yes: WNL Musculoskeletal: Yes: WNL Extremities: Yes: WNL Edema: No Peripheral Pulses WNL: Yes Peripheral Pulses: Left Radial: 4+, Right Radial: 4+, Left Doralis Pedis: 3+, Right Dorsalis Pedis: 3+, Left Femoral: 3+, Right Femoral: 3+ Integumentary: Yes: WNL Neurological: Yes: WNL, Alert, Oriented ...Motor Strength: WNL Psychiatric: Yes: WNL, Alert, Other (flat affect) Labs: reviewed 03/07 Imaging - Results EKG: Other (nsr) Assessment/Plan patient is a 36 y/o female that presents for ect, labs and ekg reviewed patient is medically optimized for procedure
[2017-03-30 09:39] VITALS: TEMP 98.2
[2017-03-30 10:25] VITALS: BP 118/80; PULSE 88
== END 2017-03-30 10:15 | disposition home or self-care (01) ==
LOC: FECT 05:49
PROVIDERS: ATTEND Psychiatry & Neurology Psychiatry
PROC: GZB4ZZZ Other Electroconvulsive Therapy (ICD-10-PCS; principal; 2017-03-30 08:45)
DX: F25.1 Schizoaffective disorder, depressive type (principal)
CPT/HCPCS: 84703; 90870; 94760

== ENCOUNTER 2017-04-02 05:40 | Day surgery (SDC) | payer OTHER ==
[2017-04-02 06:36] VITALS: BMI 24.6
[2017-04-02 08:56] VITALS: TEMP 98.4
[2017-04-02 09:34] VITALS: BP 98/68; PULSE 64
== END 2017-04-02 09:42 | disposition home or self-care (01) ==
LOC: FECT 05:40
PROVIDERS: ATTEND Psychiatry & Neurology Psychiatry
PROC: GZB4ZZZ Other Electroconvulsive Therapy (ICD-10-PCS; principal; 2017-04-02 08:00)
DX: F25.1 Schizoaffective disorder, depressive type (principal)
CPT/HCPCS: 84703; 90870; 94760

== ENCOUNTER 2017-04-06 05:44 | Day surgery (SDC) | payer OTHER ==
[2017-04-05 12:30] VITALS: BMI 24.6
[2017-04-06 08:37] VITALS: TEMP 98.1
[2017-04-06 09:26] VITALS: BP 110/54; PULSE 66
== END 2017-04-06 09:15 | disposition home or self-care (01) ==
LOC: FECT 05:44
PROVIDERS: ATTEND Psychiatry & Neurology Psychiatry
PROC: GZB4ZZZ Other Electroconvulsive Therapy (ICD-10-PCS; principal; 2017-04-06 08:00)
DX: F25.1 Schizoaffective disorder, depressive type (principal)
CPT/HCPCS: 84703; 90870; 94760

== ENCOUNTER 2017-04-09 05:46 | Day surgery (SDC) | payer OTHER ==
[2017-04-05 16:43] VITALS: BMI 24.6
[2017-04-09 06:32] VITALS: TEMP 98.2
[2017-04-09 09:11] VITALS: BP 122/72; PULSE 77
== END 2017-04-09 09:00 | disposition home or self-care (01) ==
LOC: FECT 05:46
PROVIDERS: ATTEND Psychiatry & Neurology Psychiatry
PROC: GZB4ZZZ Other Electroconvulsive Therapy (ICD-10-PCS; principal; 2017-04-09 08:00)
DX: F33.2 Major depressive disorder, recurrent severe without psychotic features (principal)
CPT/HCPCS: 90870; 94760

== ENCOUNTER 2017-04-13 05:43 | Day surgery (SDC) | payer OTHER ==
[2017-04-09 13:42] VITALS: BMI 24.6
[2017-04-13] MEDS ORDERED: KETAMINE HCL 500 MG/10 ML VIAL ONE (08:08)
[2017-04-13] MEDS ORDERED: PROMETHAZINE HCL 25 MG/1 ML VIAL IVPUSH PRN (08:38)
[2017-04-13] MEDS ORDERED: ONDANSETRON 4 MG/2 ML VIAL IVPUSH PRN (08:38)
[2017-04-13] MEDS ORDERED: ACETAMINOPHEN 325 MG TABLET (FP) PO PRN (08:38)
[2017-04-13] MEDS ORDERED: LACTATED RINGERS SOLUTION 1,000 ML IV SCH (08:45)
[2017-04-13 09:05] VITALS: TEMP 98
[2017-04-13 10:04] VITALS: BP 110/79; PULSE 73
== END 2017-04-13 09:30 | disposition home or self-care (01) ==
LOC: FECT 05:43
PROVIDERS: ATTEND Psychiatry & Neurology Psychiatry
PROC: GZB4ZZZ Other Electroconvulsive Therapy (ICD-10-PCS; principal; 2017-04-13 08:00)
DX: F25.1 Schizoaffective disorder, depressive type (principal)
CPT/HCPCS: 84703; 90870; 94760

== ENCOUNTER 2017-04-16 05:42 | Day surgery (SDC) | payer OTHER ==
[2017-04-16 07:49] VITALS: BMI 24.6
[2017-04-16 10:16] VITALS: TEMP 97.8
[2017-04-16 10:17] VITALS: BP 107/62; PULSE 72
== END 2017-04-16 10:22 | disposition home or self-care (01) ==
LOC: FECT 05:42
PROVIDERS: ATTEND Psychiatry & Neurology Psychiatry
PROC: GZB4ZZZ Other Electroconvulsive Therapy (ICD-10-PCS; principal; 2017-04-16 08:00)
DX: F25.1 Schizoaffective disorder, depressive type (principal)
CPT/HCPCS: 90870; 94760

== ENCOUNTER 2017-04-20 05:46 | Day surgery (SDC) | payer OTHER ==
[2017-04-20 06:57] VITALS: BMI 24.6
[2017-04-20] MEDS ORDERED: KETAMINE HCL 500 MG/10 ML VIAL ONE (07:53)
[2017-04-20] MEDS ORDERED: ACETAMINOPHEN 325 MG TABLET (FP) PO PRN (08:03)
[2017-04-20 09:28] VITALS: TEMP 98
[2017-04-20 09:29] VITALS: BP 119/78; PULSE 88
== END 2017-04-20 09:20 | disposition home or self-care (01) ==
LOC: FECT 05:46
PROVIDERS: ATTEND Psychiatry & Neurology Psychiatry
PROC: GZB4ZZZ Other Electroconvulsive Therapy (ICD-10-PCS; principal; 2017-04-20 08:00)
DX: F25.1 Schizoaffective disorder, depressive type (principal)
CPT/HCPCS: 84703; 90870; 94760

== ENCOUNTER 2017-04-23 05:45 | Day surgery (SDC) | payer OTHER ==
[2017-04-19 08:11] VITALS: BMI 24.6
[2017-04-23] MEDS ORDERED: KETAMINE HCL 500 MG/10 ML VIAL ONE (09:08)
[2017-04-23 10:18] VITALS: TEMP 97.3
[2017-04-23 11:08] VITALS: BP 112/62; PULSE 64
== END 2017-04-23 11:00 | disposition home or self-care (01) ==
LOC: FECT 05:45
PROVIDERS: ATTEND Psychiatry & Neurology Psychiatry
PROC: GZB4ZZZ Other Electroconvulsive Therapy (ICD-10-PCS; principal; 2017-04-23 08:15)
DX: F33.2 Major depressive disorder, recurrent severe without psychotic features (principal)
CPT/HCPCS: 36415; 84703; 90870; 94760

== ENCOUNTER 2017-04-27 05:57 | Day surgery (SDC) | payer OTHER ==
[2017-04-27 06:32] VITALS: BMI 24.6
[2017-04-27] MEDS ORDERED: KETAMINE HCL 500 MG/10 ML VIAL ONE (07:36)
[2017-04-27 08:37] VITALS: TEMP 98.2
[2017-04-27 09:06] VITALS: BP 112/71; PULSE 78
== END 2017-04-27 09:00 | disposition home or self-care (01) ==
LOC: FECT 05:57
PROVIDERS: ATTEND Psychiatry & Neurology Psychiatry
PROC: GZB4ZZZ Other Electroconvulsive Therapy (ICD-10-PCS; principal; 2017-04-27 08:45)
DX: F25.1 Schizoaffective disorder, depressive type (principal)
CPT/HCPCS: 84703; 90870; 94760

== ENCOUNTER 2017-05-06 05:41 | Day surgery (SDC) | payer OTHER ==
[2017-04-27 10:21] VITALS: BMI 24.6
[2017-05-06 07:05] VITALS: TEMP 98.1
--- NOTE | 2017-05-06 07:24 | HP ---
Admitting History and Physical - Admission History of Present Illness: patient is a 36 y/o female with a past medical history scizo-affective disorder that presents for ect, patient's last ect was 04/27/17. Patient reports feeling well, voices no complaints. Patient denies any recent illnesses or hospitalizations. Patient denies any changes in medications. History Source: Patient Limitations to Obtaining History: Other - Past Medical History ...LMP: 03/22/17 Psych: Yes: Bipolar, Other (schizoaffective disorder) - Past Surgical History Past Surgical History: Yes: None. No: AAA Repair, AICD, Amputation, Appendectomy, Arthrosocopy, AV Fistula/Graft, Bariatric Surgery, Breast Biopsy, Bypass, CABG, Carotid Endarterectomy, Cataract Removal, Cholecystectomy, Colectomy, Colonoscopy, Colostomy, Craniotomy, , Cystectomy, Hernia Repair, Hysterectomy, Ileal Conduit, Ileosotomy, Joint Replacement, Kidney Transplant, Laminectomy, Liver Transplant, Mastectomy, Nephrectomy, Oopherectomy , Orchiectomy, Permanent Pacemaker, Prostatectomy, Splenectomy, Stent, Thoracotomy, TURP, Tonsillectomy, Tubal Ligation, Upper Endoscopy, Valve Replacement, Vasectomy, Vein Stripping/Ligation - Smoking History Smoking history: Never smoked Have you smoked in the past 12 months: No - Alcohol/Substance Use Hx Alcohol Use: No History of Substance Use: reports: None - Social History Usual Living Arrangement: Yes: With Parent ADL: Independent History of Recent Travel: No Home Medications - Allergies Allergies/Adverse Reactions: Allergies Allergy/AdvReac Type Severity Reaction Status Date / Time No Known Drug Allergies Allergy Verified 03/19/17 07:08 - Home Medications Home Medications: Ambulatory Orders Aripiprazole 5 mg PO DAILY 02/25/17 Cariprazine HCl [Vraylar] 3 mg PO DAILY 02/25/17 Diazepam [Valium] 5 mg PO BID 02/25/17 Divalproex [Depakote -] 250 mg PO DAILY 02/25/17 Divalproex [Depakote -] 250 mg PO HS 02/25/17 Levomefolate/Algal Oil [Deplin-Algal Oil 15 mg Capsule] 1 each PO DAILY Clonazepam 2 mg PO DAILY PRN 03/08/17 Family Disease History - Family Disease History Family Disease History: Other: Father (deceaseed "long illnesses") Review of Systems - Review of Systems Constitutional: reports: No Symptoms Eyes: reports: No Symptoms HENT: reports: No Symptoms Neck: reports: No Symptoms Cardiovascular: reports: No Symptoms Respiratory: reports: No Symptoms Gastrointestinal: reports: No Symptoms Genitourinary: reports: No Symptoms Musculoskeletal: reports: No Symptoms Integumentary: reports: No Symptoms Neurological: reports: No Symptoms Endocrine: reports: No Symptoms Hematology/Lymphatic: reports: No Symptoms Psychiatric: reports: No Symptoms Physical Examination Vital Signs: Vital Signs Temperature 98.1 F 05/06/17 06:55 Pulse Rate 84 05/06/17 06:55 Respiratory Rate 18 05/06/17 06:55 Blood Pressure 123/87 05/06/17 06:55 O2 Sat by Pulse Oximetry (%) 96 05/06/17 06:55 Constitutional: Yes: Well Nourished, No Distress, Calm Eyes: Yes: WNL, Conjunctiva Clear, EOM Intact HENT: Yes: WNL, Atraumatic, Normocephalic Neck: Yes: WNL, Supple, Trachea Midline Cardiovascular: Yes: WNL, Regular Rate and Rhythm, S1, S2 Respiratory: Yes: WNL, Regular, CTA Bilaterally Gastrointestinal: Yes: WNL, Normal Bowel Sounds, Soft ...Rectal Exam: Yes: Deferred Renal/: Yes: WNL Breast(s): Yes: WNL Musculoskeletal: Yes: WNL Extremities: Yes: WNL Edema: No Peripheral Pulses WNL: Yes Peripheral Pulses: Left Radial: 4+, Right Radial: 4+, Left Doralis Pedis: 3+, Right Dorsalis Pedis: 3+, Left Femoral: 3+, Right Femoral: 3+ Integumentary: Yes: WNL Neurological: Yes: WNL, Alert, Oriented ...Motor Strength: WNL Psychiatric: Yes: WNL, Alert, Oriented Labs: reviewed 03/07 Imaging - Results EKG: Image Reviewed, Other (nsr) Assessment/Plan patient is a 36 y/o female that presents for ect, labs and ekg reviewed patient is medically optimized pending urine hcg
[2017-05-06] MEDS ORDERED: ONDANSETRON 4 MG/2 ML VIAL IVPUSH PRN (07:52)
[2017-05-06 09:40] VITALS: BP 116/66; PULSE 82
== END 2017-05-06 09:45 | disposition home or self-care (01) ==
LOC: FECT 05:41
PROVIDERS: ATTEND Psychiatry & Neurology Psychiatry
PROC: GZB4ZZZ Other Electroconvulsive Therapy (ICD-10-PCS; principal; 2017-05-06 07:15)
DX: F25.1 Schizoaffective disorder, depressive type (principal)
CPT/HCPCS: 36415; 84703

== ENCOUNTER 2017-05-10 05:54 | Day surgery (SDC) | payer OTHER ==
[2017-05-10 08:46] VITALS: BMI 21.0
[2017-05-10] MEDS ORDERED: oxyCODONE HCL 5 MG TABLET PO PRN (09:55)
[2017-05-10] MEDS ORDERED: ONDANSETRON 4 MG/2 ML VIAL IVPUSH PRN (09:55)
[2017-05-10] MEDS ORDERED: LACTATED RINGERS SOLUTION 1,000 ML IV SCH (10:00)
[2017-05-10 13:38] VITALS: BP 116/66; PULSE 70; TEMP 97.5
== END 2017-05-10 11:45 | disposition home or self-care (01) ==
LOC: FECT 05:54
PROVIDERS: ATTEND Psychiatry & Neurology Psychiatry
PROC: GZB4ZZZ Other Electroconvulsive Therapy (ICD-10-PCS; principal; 2017-05-10 08:00)
DX: F25.1 Schizoaffective disorder, depressive type (principal)
CPT/HCPCS: 36415; 84703

== ENCOUNTER 2017-05-18 05:46 | Day surgery (SDC) | payer OTHER ==
[2017-05-14 15:40] VITALS: BMI 24.6
[2017-05-18 06:53] VITALS: TEMP 98.6
[2017-05-18 09:34] VITALS: BP 101/71; PULSE 60
[2017-05-18] MEDS ORDERED: ONDANSETRON 4 MG/2 ML VIAL IVPUSH PRN (10:15)
== END 2017-05-18 09:30 | disposition home or self-care (01) ==
LOC: FECT 05:46
PROVIDERS: ATTEND Psychiatry & Neurology Psychiatry
PROC: GZB4ZZZ Other Electroconvulsive Therapy (ICD-10-PCS; principal; 2017-05-18 07:45)
DX: F25.1 Schizoaffective disorder, depressive type (principal)
CPT/HCPCS: 36415; 84703; 90870; 94760

== ENCOUNTER 2017-05-25 05:42 | Day surgery (SDC) | payer OTHER ==
[2017-05-25 06:28] VITALS: TEMP 98.2; BMI 24.6
[2017-05-25] MEDS ORDERED: ONDANSETRON 4 MG/2 ML VIAL IVPUSH PRN (08:26)
[2017-05-25 09:00] VITALS: BP 110/78; PULSE 81
== END 2017-05-25 09:05 | disposition home or self-care (01) ==
LOC: FECT 05:42
PROVIDERS: ATTEND Psychiatry & Neurology Psychiatry
PROC: GZB4ZZZ Other Electroconvulsive Therapy (ICD-10-PCS; principal; 2017-05-25 08:15)
DX: F25.1 Schizoaffective disorder, depressive type (principal)
CPT/HCPCS: 84703; 90870; 94760

== ENCOUNTER 2017-06-08 06:11 | Day surgery (SDC) | payer OTHER ==
[2017-06-08 07:09] VITALS: TEMP 98.2; BMI 24.6
--- NOTE | 2017-06-08 07:26 | HP ---
CHIEF COMPLAINT: bipolar/schizophrenia HISTORY OF PRESENT ILLNESS: This is a 36 year old female with no h/o bipolar depression and schizophrenia who presented to [facility] for routine ECT. Her last ECT was 05/25/17. She is unable to tell me if the ECT is helping or not but family reports it is. Mother reports she is able to focus on other conversations other than the voices in her head. Pt answers simple questions only. Recent Travel: none PAST MEDICAL HISTORY: Bipolar, schizophrenia PAST SURGICAL HISTORY: pt denies Social History: Smoking: pt denies Alcohol: pt denies Drugs: pt denies Allergies No Known Drug Allergies Allergy (Verified 03/19/17 07:08) HOME MEDICATIONS: 3 Medication Instructions Recorded Cariprazine HCl [Vraylar] 6 mg PO DAILY 02/25/17 Divalproex [Depakote -] 1,000 mg PO HS 02/25/17 Divalproex [Depakote -] 500 mg PO DAILY 02/25/17 Levomefolate/Algal Oil 1 each PO HS 02/25/17 [Deplin-Algal Oil 15 mg Capsule] Clonazepam 2 mg PO TID PRN 03/08/17 Benztropine Mesylate [Cogentin -] 2 mg PO BID 05/14/17 Lactobacillus Acidophilus 0.5 mg PO DAILY 05/14/17 [Acidophilus Probiotic] Olive Carbonate [Eskalith -] 450 mg PO BID 05/14/17 Casselberry-3 Fatty Acids [Casselberry-3] 1,000 mg PO BID 05/14/17 REVIEW OF SYSTEMS CONSTITUTIONAL: Absent: fever, chills, diaphoresis, generalized weakness, malaise, loss of appetite, weight change HEENT: Absent: rhinorrhea, nasal congestion, throat pain, throat swelling, difficulty swallowing, mouth swelling, ear pain, eye pain, visual changes CARDIOVASCULAR: Absent: chest pain, syncope, palpitations, irregular heart rate, lightheadedness , peripheral edema RESPIRATORY: Absent: cough, shortness of breath, dyspnea with exertion, orthopnea, wheezing, stridor, hemoptysis GASTROINTESTINAL: Absent: abdominal pain, abdominal distension, nausea, vomiting, diarrhea, constipation, melena, hematochezia GENITOURINARY: Absent: dysuria, frequency, urgency, hesitancy, hematuria, flank pain, genital pain MUSCULOSKELETAL: Absent: myalgia, arthralgia, joint swelling, back pain, neck pain SKIN: Absent: rash, itching, pallor HEMATOLOGIC/IMMUNOLOGIC: Absent: easy bleeding, easy bruising, lymphadenopathy, frequent infections ENDOCRINE: Absent: unexplained weight gain, unexplained weight loss, heat intolerance, cold intolerance NEUROLOGIC: Absent: headache, focal weakness or paresthesias, dizziness, unsteady gait, seizure, mental status changes, bladder or bowel incontinence PSYCHIATRIC: present: auditory hallucinations Absent: anxiety, depression, suicidal or homicidal ideation PHYSICAL EXAMINATION Vital Signs - 24 hr 3 06/08/17 07:01 Temperature 98.2 F Pulse Rate 68 Respiratory 18 Rate Blood Pressure 118/78 O2 Sat by Pulse 100 Oximetry (%) GENERAL: Awake, alert, and fully oriented, in no acute distress. HEAD: Normal with no signs of trauma. EYES: Pupils equal, round and reactive to light, extraocular movements intact, sclera anicteric, conjunctiva clear. No lid lag. EARS, NOSE, THROAT: Ears normal, nares patent, oropharynx clear without exudates. Moist mucous membranes. NECK: Normal range of motion, supple without lymphadenopathy, JVD, or masses. LUNGS: Breath sounds equal, clear to auscultation bilaterally. No wheezes, and no crackles. No accessory muscle use. HEART: Regular rate and rhythm, normal S1 and S2 without murmur, rub or gallop. ABDOMEN: Soft, nontender, not distended, normoactive bowel sounds, no guarding, no rebound, no masses. No hepatomegaly or splenomegaly. MUSCULOSKELETAL: Normal range of motion at all joints. No bony deformities or tenderness. No CVA tenderness. UPPER EXTREMITIES: 2+ pulses, warm, well-perfused. No cyanosis. No clubbing. No peripheral edema. LOWER EXTREMITIES: 2+ pulses, warm, well-perfused. No calf tenderness. No peripheral edema. NEUROLOGICAL: Cranial nerves II-XII intact. Normal speech. Normal gait. PSYCHIATRIC: Cooperative. Good eye contact. Appropriate mood and affect. SKIN: Warm, dry, normal turgor, no rashes or lesions noted, normal capillary refill. Laboratory Results - last 24 hr 3 06/08/17 06:40 Urine HCG, Qual Negative Labs and ECG from 02/2017 reviewed. No gross abnormalities ASSESSMENT/PLAN: 36yF with PMH bipolar depression and schizophrenia presented to [facility] for routine ECT. She is medically optimized for procedure and there are no contraindications. informed consent, risks/benefits to be obtained by Dr Roth Hospitalist Screening - Colonoscopy Questionnaire Colonoscopy Questionnaire: Colonoscopy Questionnaire
[2017-06-08] MEDS ORDERED: KETAMINE HCL 500 MG/10 ML VIAL ONE (07:44)
[2017-06-08] MEDS ORDERED: ONDANSETRON 4 MG/2 ML VIAL IVPUSH PRN (08:56)
[2017-06-08 09:26] VITALS: BP 96/60; PULSE 88
== END 2017-06-08 09:10 | disposition home or self-care (01) ==
LOC: FECT 06:11
PROVIDERS: ATTEND Psychiatry & Neurology Psychiatry
PROC: GZB4ZZZ Other Electroconvulsive Therapy (ICD-10-PCS; principal; 2017-06-08 08:00)
DX: F25.1 Schizoaffective disorder, depressive type (principal)
CPT/HCPCS: 84703; 90870; 94760